=== PATIENT | female | born 1980 | race African-American/Black ===

== ENCOUNTER → 2016-10-03 | Outpatient (CLI) | payer OTHER ==
[2016-06-07 17:02] VITALS: BP 113/70
[~2016-10-03] MED LIST: HYDR25CA PO; PRED50TA PO; TRIA15OI TP
--- NOTE | 2016-10-03 10:10 | RAD ---
DATE: 10/03/2016 EXAM: DIGITAL DIAGNOSTIC BILATERAL, BREAST LEFT HISTORY: Possible mass left breast (the requisition references a possible mass at the 2:00 position of the breast but the patient reports that she was told that the mass was at the 7:00 position of the left breast). COMPARISON: None This study was interpreted with the benefit of Computerized Aided Detection (CAD). FINDINGS: The breast parenchyma Is heterogeneiously dense, which could reduce sensitivity of mammography. Breast parenchyma level C no mass or definite abnormality is seen on mammography involving either breast. The 2 and 7:00 positions of the left breast were scanned. No abnormality is seen at either of these locations. IMPRESSION: Benign findings. If there is a discrete, palpable, mass in either breast biopsy may be warranted despite unremarkable imaging BI-RADS CATEGORY: 2 BENIGN FINDING(S) RECOMMENDED FOLLOW-UP: 12M 12 MONTH FOLLOW-UP PQRS compliance statement: Patient information was entered into a reminder system with a target due date as clinically warranted for the next mammogram. Mammography is a sensitive method for finding small breast cancers, but it does not detect them all and is not a substitute for careful clinical examination. A negative mammogram does not negate a clinically suspicious finding and should not result in delay in biopsying a clinically suspicious abnormality. "Our facility is accredited by the [employer] Mammography Program."
== END | disposition home or self-care (01) ==
LOC: MAMMO 08:48
PROVIDERS: ATTEND Family Medicine
DX: N63 Unspecified lump in breast (principal)
CPT/HCPCS: 76641; G0204; 77066

== ENCOUNTER 2017-05-07 09:12 | Emergency (ER) | payer OTHER ==
[~2017-05-07] VITALS: Ht 162.6 cm; Wt 72.6 kg
[2017-05-07 09:18] VITALS: BP 127/76
[2017-05-07] MEDS ORDERED: DOXY100C2 PO (09:31)
[2017-05-07] MEDS ORDERED: BENZ100C PO (09:31)
--- NOTE | 2017-05-07 09:31 | PHYS DOC ---
Past Medical History Past Medical History: No Pertinent History Additional Past Medical Histor: eczema Past Surgical History: No Surgical History Alcohol Use: None Drug Use: None Adult General Chief Complaint Chief Complaint: COUGH HPI HPI Patient is a 36 year old female presents to the emergency department with a history of frontal and maxillary sinus pressure, nasal congestion, cough for 2 days. Patient states she had vomited 1 time yesterday. 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 Patient denies fever, states she was up all night from coughing. Denies the cough being productive. Denies abdominal pain, diarrhea. She states she is on the depo injections, denies . Review of Systems Review of Systems Constitutional: Denies fever or chills [] Eyes: Denies change in visual acuity, redness, or eye pain [] HENT: nasal congestion denies sore throat [] Respiratory: cough denies shortness of breath [] Cardiovascular: No additional information not addressed in HPI [] GI: Denies abdominal pain, nausea, vomiting, bloody stools or diarrhea [] : Denies dysuria or hematuria [] Musculoskeletal: Denies back pain or joint pain [] Integument: Denies rash or skin lesions [] Neurologic: Denies headache, focal weakness or sensory changes [] Endocrine: Denies polyuria or polydipsia [] Allergies Allergies Allergies Coded Allergies Type Severity Reaction Last Updated Verified Penicillins Allergy Mild 08/18/15 Yes Physical Exam Physical Exam Constitutional: Well developed, well nourished, no acute distress, non-toxic appearance. [] HENT: Normocephalic, atraumatic, bilateral external ears normal, oropharynx moist, no oral exudates, nose normal. Bilateral TM normal, throat with erythema noted, no exudate. Patient with frontal and maxillary sinus tenderness bilaterally. Eyes: PERRLA, EOMI, conjunctiva normal, no discharge. [] Neck: Normal range of motion, no tenderness, supple, no stridor. [] Cardiovascular:Heart rate regular rhythm, no murmur [] Lungs & Thorax: Bilateral breath sounds clear to auscultation [] Skin: Warm, dry, no erythema, no rash. [] Back: No tenderness Extremities: No tenderness, no cyanosis, no clubbing, ROM intact, no edema. [] Neurologic: Alert and oriented X 3, normal motor function, normal sensory function, no focal deficits noted. [] Psychologic: Affect normal, judgement normal, mood normal. [] EKG EKG [] Radiology/Procedures Radiology/Procedures [] Course & Med Decision Making Course & Med Decision Making Pertinent Labs and Imaging studies reviewed. (See chart for details) Since this has been going on 2 days this may still be a viral infection. However patient does work in a jail and has sick contact. Patient has not has the influenza vaccine as of yet. Patient will be encouraged to drink plenty of fluids. Tylenol or Ibuprofen for fever, chills or generalized body aches and discomfort. She will be provided with tessalon perles, doxycycline for sinusitis. She will be recommended to followup with primary care provider in 5-7 days. Signs and symptoms to return to the emergency department has been provided. All questions and concerns have been answered at patients beside. Patinet will be provided with a work note for 2 days. [] Dragon Disclaimer Dragon Disclaimer This electronic medical record was generated, in whole or in part, using a voice recognition dictation system. Departure Departure Impression: Primary Impression: Sinusitis Disposition: 01 HOME, SELF-CARE Condition: STABLE Referrals: AWAIS IBARRA MD (PCP) Patient Instructions: Sinusitis, [id number] Additional Instructions: Activity as tolerated Medication as prescribed Sudafed and mucinex DM as directed by manufacture over the counter Tylenol or Ibuprofen for fever, chills or generalized by aches Drink plenty of fluids such as water, gatorade or propel Followup with primary care provider in 5-7 days Return to emergency department as needed for signs and symptoms that become worse. Scripts Benzonatate (TESSALON PERLE) 100 Mg Capsule 1 CAP PO TID, #30 CAP Prov: ALAN STILL APRN 05/07/17 Doxycycline Hyclate (DOXYCYCLINE HYCLATE) 100 Mg Capsule 1 CAP PO BID, #20 CAP Prov: ALAN STILL APRN 05/07/17 Problem Qualifiers Primary Impression: Sinusitis Sinusitis location: unspecified location Chronicity: unspecified Qualified Codes: J32.9 - Chronic sinusitis, unspecified ALAN STILL APRN May 07, 2017 09:31
== END 2017-05-07 09:37 | disposition home or self-care (01) ==
LOC: ER 09:12
DX: J32.1 Chronic frontal sinusitis (principal); J32.0 Chronic maxillary sinusitis; Z88.0 Allergy status to penicillin
CPT/HCPCS: 99283

== ENCOUNTER 2019-05-10 16:41 | Emergency (ER) | payer BC, OTHER ==
[~2019-05-10] VITALS: Ht 162.6 cm; Wt 77.1 kg
[~2019-05-10 16:41] MED LIST changes: +BENZ100C PO; +DOXY100C2 PO
[2019-05-10 17:09] VITALS: BP 132/84
--- NOTE | 2019-05-10 17:27 | PHYS DOC ---
Past Medical History Past Medical History: No Pertinent History Additional Past Medical Histor: eczema Past Surgical History: No Surgical History Additional Past Surgical Histo: Bladder Stent Alcohol Use: None Drug Use: None Adult General Chief Complaint Chief Complaint: EARACHE/EAR PAIN HPI HPI Patient is a 38 year old [f__sex] who presents with [] Review of Systems Review of Systems HENT: Denies nasal congestion or sore throat. Left ear pain. [] Integument:Eczema. Denies rash or skin lesions [] All other systems were reviewed and found to be within normal limits, except as documented in this note. Allergies Allergies Allergies Coded Allergies Type Severity Reaction Last Updated Verified Penicillins Allergy Mild 08/18/15 Yes Physical Exam Physical Exam Constitutional: Well developed, well nourished, no acute distress, non-toxic appearance. [] HENT: Normocephalic, atraumatic, bilateral external ears normal, oropharynx moist, no oral exudates, nose normal. Left otitis externa.[] Eyes: PERRLA, EOMI, conjunctiva normal, no discharge. [] Neck: Normal range of motion, no tenderness, supple, no stridor. [] Cardiovascular:Heart rate regular rhythm, no murmur [] Lungs & Thorax: Bilateral breath sounds clear to auscultation [] Abdomen: Bowel sounds normal, soft, no tenderness, no masses, no pulsatile masses. [] Skin: Eczema to flexures, outer ear. Warm, dry, no erythema, no rash. [] Back: No tenderness, no CVA tenderness. [] Extremities: No tenderness, no cyanosis, no clubbing, ROM intact, no edema. [] Neurologic: Alert and oriented X 3, normal motor function, normal sensory function, no focal deficits noted. [] Psychologic: Affect normal, judgement normal, mood normal. [] Current Patient Data Vital Signs Vital Signs Date Time Temp Pulse Resp B/P (MAP) Pulse Ox O2 Delivery O2 Flow Rate FiO2 05/10/19 17:09 97.8 74 18 132/84 (100) 98 Room Air 97.8 EKG EKG [] Radiology/Procedures Radiology/Procedures [] Course & Med Decision Making Course & Med Decision Making Left otitis externa. Patient has eczema to the ear lobe. Patient states she has not been able to get into her primary care doctor to get her time in slowing cream for her eczema. I have written the prescription. Vital signs within normal limits. Patient denies any other symptoms. Patient rates her left ear pain 8 out of 10. Dragon Disclaimer Dragon Disclaimer This electronic medical record was generated, in whole or in part, using a voice recognition dictation system. Departure Departure Impression: Primary Impression: Eczema Additional Impression: Otitis externa Disposition: HOME, SELF-CARE Condition: STABLE Referrals: NO PCP (PCP) Patient Instructions: Eczema Additional Instructions: Follow up with your PCP as soon as possible. Scripts Ciprofloxacin Hcl/Dexameth (CIPRODEX OTIC SUSPENSION) 7.5 Ml Drops.susp 4 DROP LEFT EAR BID for 7 Days, #7.5 ML Prov: ALAN LANCASTER APRN 05/10/19 Triamcinolone Acetonide (TRIAMCINOLONE ACETONIDE 0.1% OINT) 15 Gm Oint...g. 1 LOREE TP BID for WOUND CARE, #1 TUBE MIX WITH EUCERIN DIRECTED BY PHYSICIAN Prov: ALAN LANCASTER APRN 05/10/19 Problem Qualifiers Primary Impression: Eczema Eczema type: flexural Qualified Codes: L20.82 - Flexural eczema Additional Impression: Otitis externa Otitis externa type: other infective Chronicity: acute Laterality: left Qualified Codes: H60.392 - Other infective otitis externa, left ear ALAN LANCASTER APRN May 10, 2019 17:27
[2019-05-10] MEDS ORDERED: TRIA15OI TP (17:28)
[2019-05-10] MEDS ORDERED: CIPR7.5D LEFT EAR (17:29)
== END 2019-05-10 17:50 | disposition home or self-care (01) ==
LOC: ER 16:41
DX: L20.82 Flexural eczema (principal); H60.392 Other infective otitis externa, left ear; Z88.0 Allergy status to penicillin
CPT/HCPCS: 99283

== ENCOUNTER 2020-03-18 21:20 | Emergency (ER) | payer SELFPAY ==
[~2020-03-18] VITALS: Ht 162.6 cm; Wt 72.7 kg
[~2020-03-18 21:20] MED LIST changes: +CIPR7.5D LEFT EAR
[2020-03-18 21:53] VITALS: BP 116/77
[2020-03-18] MEDS ORDERED: FAMO40TA57 PO (23:44)
[2020-03-18] MEDS ORDERED: PRED20TA PO (23:44)
--- NOTE | 2020-03-18 23:44 | PHYS DOC ---
Past Medical History Past Medical History: No Pertinent History Additional Past Medical Histor: eczema Past Surgical History: Other Additional Past Surgical Histo: Bladder Stent Smoking Status: Never Smoker Alcohol Use: None Drug Use: None General Adult EDM: Chief Complaint: SKIN RASH/ABSCESS HPI: HPI: Patient is a 39 year old female with a past medical history eczema presents for evaluation of eczema. Patient has an acute breakout bilateral arms. Patient is states she has been using her scribed eczema cream and Benadryl with no relief. Onset of symptoms 3 to 4 days progressively getting worse. Review of Systems: Review of Systems: Constitutional: Denies fever or chills. [] Eyes: Denies change in visual acuity. [] HENT: Denies nasal congestion or sore throat. [] Respiratory: Denies cough or shortness of breath. [] Cardiovascular: Denies chest pain or edema. [] GI: Denies abdominal pain, nausea, vomiting, bloody stools or diarrhea. [] : Denies dysuria. [] Musculoskeletal: Denies back pain or joint pain. [] Integument: Positive rash positive itch Neurologic: Denies headache, focal weakness or sensory changes. [] Endocrine: Denies polyuria or polydipsia. [] Lymphatic: Denies swollen glands. [] Psychiatric: Denies depression or anxiety. [] Heart Score: Risk Factors: Risk Factors: DM, Current or recent (<one month) smoker, HTN, HLP, family history of CAD, obesity. Risk Scores: Score 0 - 3: 2.5% MACE over next 6 weeks - Discharge Home Score 4 - 6: 20.3% MACE over next 6 weeks - Admit for Clinical Observation Score 7 - 10: 72.7% MACE over next 6 weeks - Early Invasive Strategies Current Medications: Current Medications Medications (Trade) Dose Ordered Sig/Reyes Start Time Stop Time Status Last Admin Dose Admin Famotidine (Pepcid) 20 mg 1X ONCE 03/18/20 23:45 03/18/20 23:46 UNV Methylprednisolone Sodium Succinate (SOLU-Medrol 125MG VIAL) 125 mg 1X ONCE 03/18/20 23:45 03/18/20 23:46 UNV Allergies: Allergies: Allergies Coded Allergies Type Severity Reaction Last Updated Verified Penicillins Allergy Mild 08/18/15 Yes Physical Exam: PE: Constitutional: Well developed, well nourished, no acute distress, non-toxic appearance. [] HENT: Normocephalic, atraumatic, bilateral external ears normal, oropharynx moist, no oral exudates, nose normal. [] Eyes: PERRLA, EOMI, conjunctiva normal, no discharge. [] Neck: Normal range of motion, no tenderness, supple, no stridor. [] Cardiovascular:Heart rate regular rhythm, no murmur [] Lungs & Thorax: Bilateral breath sounds clear to auscultation [] Abdomen: Bowel sounds normal, soft, no tenderness, no masses, no pulsatile masses. [] Skin: Positive rash bilateral upper extremity raised erythematous Back: No tenderness, no CVA tenderness. [] Extremities: No tenderness, no cyanosis, no clubbing, ROM intact, no edema. [] Neurologic: Alert and oriented X 3, normal motor function, normal sensory function, no focal deficits noted. [] Psychologic: Affect normal, judgement normal, mood normal. [] Current Patient Data: Vital Signs: Vital Signs Date Time Temp Pulse Resp B/P (MAP) Pulse Ox O2 Delivery O2 Flow Rate FiO2 03/18/20 21:53 98.1 91 18 116/77 (90) 99 Room Air 98.1 EKG: EKG: [] Radiology/Procedures: Radiology/Procedures: [] Course & Med Decision Making: Course & Med Decision Making Pertinent Labs and Imaging studies reviewed. (See chart for details) [] Patient states current rash is similar to previous eczema outbreaks. Will place patient on Medrol Dosepak. Patient treated in the ER with Solu-Medrol. Patient advised to take [id number] Benadryl and Pepcid. Patient to continue using her eczema cream. Andrew Disclaimer: Andrew Disclaimer: This electronic medical record was generated, in whole or in part, using a voice recognition dictation system. Departure Departure Impression: Primary Impression: Eczema Disposition: 01 HOME, SELF-CARE Condition: STABLE Referrals: NO PCP (PCP) Patient Instructions: Eczema, Rash Scripts Famotidine (PEPCID) 40 Mg Tablet 40 MG PO HS for 10 Days, #10 TAB Prov: CHARLY ROBISON I DO 03/18/20 Prednisone (PREDNISONE) 20 Mg Tablet 1 TAB PO UD for 12 Days, #15 TAB Take 2 tabs days 1,2,3 1.5 tabs days 3,4,5 1 tab days 6,7,8 0.5 tab days 9,10,11 Prov: CHARLY ROBISON I DO 03/18/20 Justicifation of Admission Dx: Justifications for Admission: Justification of Admission Dx: N/A CHARLY ROBISON I DO Mar 18, 2020 23:44
[2020-03-18] MEDS ORDERED: methylPREDNISolone SOD SUCC PF 125 MG/2 ML VIAL. IM ONE (23:45)
[2020-03-18] MEDS ORDERED: FAMOTIDINE 20 MG TABLET. PO ONE (23:45)
== END 2020-03-18 23:58 | disposition home or self-care (01) ==
LOC: ER 21:20
DX: L30.9 Dermatitis, unspecified (principal); R21 Rash and other nonspecific skin eruption; Z98.890 Other specified postprocedural states; Z88.0 Allergy status to penicillin
CPT/HCPCS: 96372; 99283; J2930

== ENCOUNTER 2020-11-15 19:48 | Emergency (ER) | payer SELFPAY ==
[~2020-11-15] VITALS: Ht 162.6 cm; Wt 79.5 kg
[~2020-11-15 19:48] MED LIST changes: +FAMO40TA57 PO; +PRED20TA PO
[2020-11-15 19:54] VITALS: BP 114/67
[2020-11-15] MEDS ORDERED: hydrOXYzine IM 50 MG/ML VIAL IM ONE (20:30)
[2020-11-15] MEDS ORDERED: DEXAMETHASONE SOD PHOS 20 MG/5 ML VIAL. IM ONE (20:30)
[2020-11-15] MEDS ORDERED: HYDR25TA PO (20:36)
[2020-11-15] MEDS ORDERED: PRED-220 PO (20:36)
--- NOTE | 2020-11-15 20:37 | PHYS DOC ---
Past Medical History Past Medical History: Other Additional Past Medical Histor: eczema Past Surgical History: Other Additional Past Surgical Histo: Bladder Stent Smoking Status: Never Smoker Alcohol Use: None Drug Use: None General Adult EDM: Chief Complaint: ITCHING HPI: HPI: Patient is a 40 year old female presented to the ED today complaining of itching that began 2 days ago. Patient states she has severe eczema and sometimes it presents like this. She states she used to get phototherapy for eczema but due to COVID-19 she has not been able to go to the flame cutter for this. Review of Systems: Review of Systems: Constitutional: Denies fever or chills. [] Musculoskeletal: Denies back pain or joint pain. [] Integument: Reports pruritic rash Neurologic: Denies headache, focal weakness or sensory changes. [] Psychiatric: Denies depression or anxiety. [] Heart Score: C/O Chest Pain: N/A Risk Factors: Risk Factors: DM, Current or recent (<one month) smoker, HTN, HLP, family history of CAD, obesity. Risk Scores: Score 0 - 3: 2.5% MACE over next 6 weeks - Discharge Home Score 4 - 6: 20.3% MACE over next 6 weeks - Admit for Clinical Observation Score 7 - 10: 72.7% MACE over next 6 weeks - Early Invasive Strategies Allergies: Allergies: Allergies Coded Allergies Type Severity Reaction Last Updated Verified Penicillins Allergy Mild 08/18/15 Yes Physical Exam: PE: Constitutional: Well developed, well nourished, no acute distress, non-toxic appearance. [] Skin: Patient is currently itching, she has multiple lesions of eczema throughout her upper extremities. Back: No tenderness, no CVA tenderness. [] Extremities: No tenderness, no cyanosis, no clubbing, ROM intact, no edema. [] Neurologic: Alert and oriented X 3, normal motor function, normal sensory function, no focal deficits noted. [] Psychologic: Affect normal, judgement normal, mood normal. [] Current Patient Data: Vital Signs: Vital Signs Date Time Temp Pulse Resp B/P (MAP) Pulse Ox O2 Delivery O2 Flow Rate FiO2 11/15/20 19:54 98.2 89 16 114/67 (83) 100 Room Air 98.2 EKG: EKG: [] Radiology/Procedures: Radiology/Procedures: [] Course & Med Decision Making: Course & Med Decision Making Pertinent Labs and Imaging studies reviewed. (See chart for details) This is a 40-year-old female patient presenting to the ED today with severe itching that began 2 days ago. She has history of eczema and does phototherapy but has not had a chance to do this therapy for 1 year due to COVID-19. She currently has triamcinolone cream and Benadryl which is not helping. She was given Decadron injection in the ED and hydroxyzine. She will be discharged with hydroxyzine and tapered dose of prednisone to use until seen by the flame cutter Andrew Disclaimer: Andrew Disclaimer: This electronic medical record was generated, in whole or in part, using a voice recognition dictation system. Departure Departure Impression: Primary Impression: Eczema Qualified Codes: L30.8 - Other specified dermatitis Additional Impression: Pruritic dermatitis Disposition: HOME / SELF CARE / HOMELESS Condition: STABLE Referrals: NO PCP (PCP) Follow-up with your flame cutter as soon as possible Patient Instructions: Eczema, Itching-Brief Additional Instructions: You were evaluated in the emergency room. Try and get an appointment with your flame cutter as soon as possible. Use the prescribed medications as ordered Scripts Prednisone (PREDNISONE ) 10 Mg Tablet 10 MG PO UD for PREDNISONE TAPER, #39 TAB 0 Refills Take 3 tablets by mouth twice a day for 3 days, then take 2 tablets by mouth twice a day for 3 days, then take 1 tablet by mouth twice a day for 3 days, then take 1 tablet by mouth daily x 3 days, then stop. Prov: JUAN RAYO APRN 11/15/20 Hydroxyzine Hcl (HYDROXYZINE HCL) 25 Mg Tablet 1 TAB PO TID, #90 TAB 2 Refills Prov: JUAN RAYO APRN 11/15/20 JUAN RAYO APRN November 15, 2020 20:37
== END 2020-11-15 20:55 | disposition home or self-care (01) ==
LOC: ER 20:25
DX: L30.8 Other specified dermatitis (principal); Z96.0 Presence of urogenital implants; Z88.0 Allergy status to penicillin
CPT/HCPCS: 96372; 99284; J1100; J3410

== ENCOUNTER 2020-12-21 15:48 | Emergency (ER) | payer SELFPAY ==
[~2020-12-21] VITALS: Ht 162.6 cm; Wt 77.2 kg
[~2020-12-21 15:48] MED LIST changes: +HYDR25TA PO; +PRED-220 PO
[2020-12-21 17:17] VITALS: BP 131/77
--- NOTE | 2020-12-21 17:48 | PHYS DOC ---
Past Medical History Past Medical History: Other Additional Past Medical Histor: eczema Past Surgical History: Other Additional Past Surgical Histo: Bladder Stent Smoking Status: Never Smoker Alcohol Use: None Drug Use: None General Adult EDM: Chief Complaint: SKIN RASH/ABSCESS HPI: HPI: Patient is a 40 year old female who presents with eczema bilateral arms and hands have flared up the last week. She states she is out of the hydroxyzine and try menthol cream. She states it helps her best. Has medical history of eczema. Review of Systems: Review of Systems: Constitutional: Denies fever or chills. [] Eyes: Denies change in visual acuity. [] HENT: Denies nasal congestion or sore throat. [] Respiratory: Denies cough or shortness of breath. [] Cardiovascular: Denies chest pain or edema. [] GI: Denies abdominal pain, nausea, vomiting, bloody stools or diarrhea. [] : Denies dysuria. [] Musculoskeletal: Denies back pain or joint pain. [] Integument: Denies rash. +eczema [] Neurologic: Denies headache, focal weakness or sensory changes. [] Endocrine: Denies polyuria or polydipsia. [] Lymphatic: Denies swollen glands. [] Psychiatric: Denies depression or anxiety. [] Heart Score: C/O Chest Pain: No Risk Factors: Risk Factors: DM, Current or recent (<one month) smoker, HTN, HLP, family history of CAD, obesity. Risk Scores: Score 0 - 3: 2.5% MACE over next 6 weeks - Discharge Home Score 4 - 6: 20.3% MACE over next 6 weeks - Admit for Clinical Observation Score 7 - 10: 72.7% MACE over next 6 weeks - Early Invasive Strategies Allergies: Allergies: Allergies Coded Allergies Type Severity Reaction Last Updated Verified Penicillins Allergy Mild 08/18/15 Yes Physical Exam: PE: Constitutional: Well developed, well nourished, no acute distress, non-toxic appearance. [] HENT: Normocephalic, atraumatic, bilateral external ears normal, oropharynx moist, no oral exudates, nose normal. [] Eyes: PERRLA, EOMI, conjunctiva normal, no discharge. [] Neck: Normal range of motion, no tenderness, supple, no stridor. [] Cardiovascular:Heart rate regular rhythm, no murmur [] Lungs & Thorax: Bilateral breath sounds clear to auscultation [] Abdomen: Bowel sounds normal, soft, no tenderness, no masses, no pulsatile masses. [] Skin: Warm, dry, no erythema, no rash. Bilateral arm eczema[] Back: No tenderness, no CVA tenderness. [] Extremities: No tenderness, no cyanosis, no clubbing, ROM intact, no edema. [] Neurologic: Alert and oriented X 3, normal motor function, normal sensory function, no focal deficits noted. [] Psychologic: Affect normal, judgement normal, mood normal. [] Current Patient Data: Vital Signs: Vital Signs Date Time Temp Pulse Resp B/P (MAP) Pulse Ox O2 Delivery O2 Flow Rate FiO2 12/21/20 17:17 98.0 80 16 131/77 (95) 100 Room Air 98.0 EKG: EKG: [] Radiology/Procedures: Radiology/Procedures: [] Course & Med Decision Making: Course & Med Decision Making Pertinent Labs and Imaging studies reviewed. (See chart for details) See HPI. Bilateral arm and hand eczema. She states she is very itchy. No signs of infection. No signs of cellulitis. Afebrile. Skin pink warm and dry. Radial pulses strong and present. Cap refill less than 2 seconds. Vital signs within normal limits. She states this is her normal flareup. [] Andrew Disclaimer: Andrew Disclaimer: This electronic medical record was generated, in whole or in part, using a voice recognition dictation system. Departure Departure Impression: Primary Impression: Eczema Qualified Codes: L30.9 - Dermatitis, unspecified Disposition: HOME / SELF CARE / HOMELESS Condition: STABLE Referrals: NO PCP (PCP) Patient Instructions: Eczema Additional Instructions: Follow-up with your bit gatherer or primary care physician. Use medications as prescribed. Scripts Methylprednisolone (MEDROL) 4 Mg Tab.ds.pk 1 PKG PO UD, #1 PKG Prov: ALAN LANCASTER ZIGZAG MACHINE OPERATOR 12/21/20 Hydroxyzine Hcl (HYDROXYZINE HCL) 25 Mg Tablet 1 TAB PO TID, #30 TAB Prov: ALAN LANCASTER ZIGZAG MACHINE OPERATOR 12/21/20 Triamcinolone Acetonide (TRIAMCINOLONE ACETONIDE 0.5% CREAM) 15 Gm Cream..g. 1 LOREE TP BID, #30 GM Prov: ALAN LANCASTER APRN 12/21/20 ALAN LANCASTER APRN Dec 21, 2020 17:48
[2020-12-21] MEDS ORDERED: HYDR25TA PO (18:05)
[2020-12-21] MEDS ORDERED: TRIA15CR TP (18:05)
[2020-12-21] MEDS ORDERED: METH4TAB2 PO (18:36)
[2020-12-21] MEDS ORDERED: methylPREDNISolone SOD SUCC PF 125 MG/2 ML VIAL. IM ONE (18:45)
== END 2020-12-21 19:04 | disposition home or self-care (01) ==
LOC: ER 15:48
DX: L30.9 Dermatitis, unspecified (principal); Z88.0 Allergy status to penicillin
CPT/HCPCS: 96372; 99283; J2930

== ENCOUNTER 2021-02-05 11:27 | Emergency (ER) | payer SELFPAY ==
[~2021-02-05 11:27] MED LIST changes: +METH4TAB2 PO; +TRIA15CR TP
== END 2021-02-05 15:29 | disposition left against medical advice (07) ==
LOC: ER 11:27
DX: L98.8 Other specified disorders of the skin and subcutaneous tissue (principal); Z53.21 Procedure and treatment not carried out due to patient leaving prior to being seen by health care provider

== ENCOUNTER 2021-10-29 22:33 | Emergency (ER) | payer SELFPAY ==
[~2021-10-29] VITALS: Ht 160 cm; Wt 77.2 kg
[~2021-10-29 22:33] MED LIST changes: -DOXY100C2 PO; +DOXY100C3 PO
--- NOTE | 2021-10-29 23:09 | PHYS DOC ---
Past Medical History Past Medical History: Other Additional Past Medical Histor: eczema Past Surgical History: Other Additional Past Surgical Histo: Bladder Stent Smoking Status: Never Smoker Alcohol Use: None Drug Use: None General Adult EDM: Chief Complaint: NAUSEA/VOMITING/DIARRHEA HPI: HPI: Patient is a 41 year old male history of eczema presenting to the ED today complaining of nausea, vomiting, symptoms began 4 days ago and have been going on intermittently since then. Patient denies any abdominal pain. Denies any hematemesis or melena. Reports some mild left flank/mid back pain that began today. Denies any chest pain or shortness of breath. Reports the pain to her back is worse when sitting down and better when standing. Currently she is standing up for comfort Review of Systems: Review of Systems: Constitutional: Denies fever or chills. [] Eyes: Denies change in visual acuity. [] HENT: Denies nasal congestion or sore throat. [] Respiratory: Denies cough or shortness of breath. [] Cardiovascular: Denies chest pain or edema. [] GI: Reports nausea, vomiting. Denies abdominal pain, bloody stools or diarrhea. [] : Denies dysuria. [] Musculoskeletal: Reports flank pain. Denies back pain or joint pain. [] Integument: Denies rash. [] Neurologic: Denies headache, focal weakness or sensory changes. [] Endocrine: Denies polyuria or polydipsia. [] Lymphatic: Denies swollen glands. [] Psychiatric: Denies depression or anxiety. [] Heart Score: C/O Chest Pain: N/A Risk Factors: Risk Factors: DM, Current or recent (<one month) smoker, HTN, HLP, family history of CAD, obesity. Risk Scores: Score 0 - 3: 2.5% MACE over next 6 weeks - Discharge Home Score 4 - 6: 20.3% MACE over next 6 weeks - Admit for Clinical Observation Score 7 - 10: 72.7% MACE over next 6 weeks - Early Invasive Strategies Allergies: Allergies: Allergies Coded Allergies Type Severity Reaction Last Updated Verified Penicillins Allergy Mild 08/18/15 Yes Physical Exam: PE: Constitutional: Well developed, well nourished, no acute distress, non-toxic appearance. [] HENT: Normocephalic, atraumatic, bilateral external ears normal, oropharynx mois t, no oral exudates, nose normal. [] Eyes: PERRLA, EOMI, conjunctiva normal, no discharge. [] Neck: Normal range of motion, no tenderness, supple, no stridor. [] Cardiovascular:Heart rate regular rhythm, no murmur [] Lungs & Thorax: Bilateral breath sounds clear to auscultation [] Abdomen: Bowel sounds normal, soft, no tenderness, no masses, no pulsatile masses. [] Skin: Warm, dry, no erythema, no rash. [] Back: No tenderness, mild left CVA tenderness. [] Extremities: No tenderness, no cyanosis, no clubbing, ROM intact, no edema. [] Neurologic: Alert and oriented X 3, normal motor function, normal sensory function, no focal deficits noted. [] Psychologic: Affect normal, judgement normal, mood normal. [] EKG: EKG: [] Radiology/Procedures: Radiology/Procedures: []PROCEDURE: CT ABDOMEN PELVIS WO CONTRAST CT abdomen and pelvis without contrast PQRS statement: CT scans at this facility use dose reduction including either automated exposure control, iterative reconstructions, and /or weight based radiation dosing via mA and kV modification when appropriate to reduce radiation dose to as low as reasonably achievable. HISTORY: Nausea, vomiting, flank pain. Abdomen findings: Liver, spleen, gallbladder, pancreas, adrenal glands and right kidney unremarkable. There may be a 2 mm faint in density urinary calculus in the left renal pelvis on image 67. No urinary calculus, hydronephrosis or perinephric edema. Appendix is normal. No obstruction or inflammation GI tract. No abdominal fluid. Pelvis findings: Left ovarian 2.7 cm hypodensity. Right ovary, uterus, bladder, rectum and bones are unremarkable. Vaginal tampon. No pelvic fluid. IMPRESSION: 1. No acute process. The appendix is negative. No obstructive uropathy. 2. 2 mm left renal pelvic calculus. 3. 2.7 cm hypodensity in the left ovary most likely a dominant follicle, versus an ovarian cyst. Further assessment with outpatient pelvic sonography is advised. Electronically signed by: Nazario Kaba MD (10/30/2021 12:24 AM) [facility] [place] DICTATED and SIGNED BY: NAZARIO KABA MD DATE: 10/30/2119 Course & Med Decision Making: Course & Med Decision Making Pertinent Labs and Imaging studies reviewed. (See chart for details) This a 41-year-old female patient presented to the ED today complaining of nausea, vomiting, symptoms for 4 days. Also complaining of left flank pain/mid back pain that began today. Negative urine hCG, UA negative for blood, negative for infection. CBC with a WBC of 12.7, hemoglobin 11.3 with hematocrit of 34.7-reports history of chronic anemia, CMP with no acute findings. CT of the abdomen and pelvis no acute process noted. The appendix is negative. No obstructive uropathy. 2. 2 mm left renal pelvic calculus. 2.7 cm hypodensity in the left ovary most likely a dominant follicle, versus an ovarian cyst. Further assessment with outpatient pelvic sonography is advised. Discharge to home. Follow-up with [facility] for the ovarian cyst, follow-up with urology for the kidney stone/PCP. Provided return precautions. Discharged on Flomax, naproxen and hydrocodone for severe pain Dragon Disclaimer: Dragon Disclaimer: This electronic medical record was generated, in whole or in part, using a voice recognition dictation system. Departure Departure Impression: Primary Impression: Renal calculi Additional Impression: Left ovarian cyst Disposition: HOME / SELF CARE / HOMELESS Condition: STABLE Referrals: NO PCP (PCP) FIDE CORTEZ DO follow up in one week AMARILYS MELO MD follow up in one week Patient Instructions: Kidney Stones, Ovarian Cyst Additional Instructions: You were evaluated in the emergency room and noted to have a kidney stone, please follow-up with your primary care doctor or the provided urologist in the course of this week. You were also noted to have left ovarian cyst, please follow-up with your [facility] for outpatient ultrasound on this. Come back to the ED at any point symptoms worsen Scripts Tamsulosin Hcl (FLOMAX) 0.4 Mg Cap.er.24h 1 CAP PO DAILY, #7 CAP 0 Refills Prov: JUAN RAYO [employer] 10/30/21 Naproxen (NAPROXEN) 500 Mg Tablet 1 TAB PO BID for pain, #14 TAB 0 Refills Prov: JUAN RAYO [employer] 10/30/21 Hydrocodone Bit/Acetaminophen (HYDROCODONE-APAP 5-325 ) 1 Tab Tablet 1 TAB PO PRN Q6HRS PRN for PAIN, #14 TAB 0 Refills Prov: MUTUNGKira,JUAN M [employer]IC 10/30/21 JUAN RAYO APRN Oct 29, 2021 23:09
[2021-10-29] MEDS ORDERED: IV NORMAL SALINE 1000ML BAG 1,000 ML IV ONE (23:15)
[2021-10-29] MEDS ORDERED: MORPHINE SULFATE 4 MG/ML INJ. IVP ONE (23:15)
[2021-10-29] MEDS ORDERED: FAMOTIDINE 20 MG/2 ML VIAL IVP ONE (23:15)
[2021-10-29] MEDS ORDERED: ONDANSETRON PF 4 MG/2 ML VIAL. IVP ONE (23:15)
[2021-10-29 23:31] LABS: BASO # 0.1 x10^3/uL (0.0-0.2); BASO % 1 % (0-3); EOS # 0.1 x10^3/uL (0.0-0.7); EOS % 1 % (0-3); HEMATOCRIT 34.7 % (36.0-47.0); HEMOGLOBIN 11.2 g/dL (12.0-15.5); LYMPH # 2.6 x10^3/uL (1.0-4.8); LYMPH % 21 % (24-48); MEAN CORPUSCULAR HEMOGLOBIN 24 pg (25-35); MEAN CORPUSCULAR HGB CONC 32 g/dL (31-37); MEAN CORPUSCULAR VOLUME 75 fL (79-100); MONO # 0.8 x10^3/uL (0.0-1.1); MONO % 6 % (0-9); NEUT # 9.1 x10^3/uL (1.8-7.7); NEUT % 72 % (31-73); PLATELET COUNT 302 x10^3/uL (140-400); RED BLOOD COUNT 4.65 x10^6/uL (3.50-5.40); RED CELL DISTRIBUTION WIDTH 14.6 % (11.5-14.5); WHITE BLOOD COUNT 12.7 x10^3/uL (4.0-11.0)
[2021-10-29 23:46] LABS: CALCIUM 8.9 mg/dL (8.5-10.1); CREATININE 0.8 mg/dL (0.6-1.0); GFR 96.1; POTASSIUM 3.9 mmol/L (3.5-5.1)
[2021-10-29 23:51] LABS: ALBUMIN 3.7 g/dL (3.4-5.0); ALBUMIN/GLOBULIN RATIO 0.9 (1.0-1.7); TOTAL BILIRUBIN 0.6 mg/dL (0.2-1.0); TOTAL PROTEIN 7.8 g/dL (6.4-8.2)
--- NOTE | 2021-10-30 00:27 | RAD ---
CT abdomen and pelvis without contrast PQRS statement: CT scans at this facility use dose reduction including either automated exposure cont rol, iterative reconstructions, and /or weight based radiation dosing via mA and kV modification when appropriate to reduce radiation dose to as low as reasonably achievable. HISTORY: Nausea, vomiting, flank pain. Abdomen findings: Liver, spleen, gallbladder, pancreas, adrenal glands and right kidney unremarkable. There may be a 2 mm faint in density urinary calculus in the left renal pelvis on image 67. No urina ry calculus, hydronephrosis or perinephric edema. Appendix is normal. No obstruction or inflammation GI tract. No abdominal fluid. Pelvis findings: Left ovarian 2.7 cm hypodensity. Right ovary, uterus, bladder, rectum and bones are unremarkable. Vaginal tampon. No pelvic fluid. IMPRESSION: 1. No acute process. The appendix is negative. No obstructive uropathy. 2. 2 mm left renal pelvic calculus. 3. 2.7 cm hypodensity in the left ovary most likely a dominant follicle, versus an ovarian cyst. Furt her assessment with outpatient pelvic sonography is advised. Electronically signed by: Matthieu Kaba MD (10/30/2021 12:24 AM) [facility]
[2021-10-30] MEDS ORDERED: TAMSULOSIN 0.4 MG CAP.ER.24H. PO ONE (00:30)
[2021-10-30 00:59] LABS: AMPHETAMINE/METHAMPHETAMINE NEG (NEG); BARBITURATES NEG (NEG); BENZODIAZEPINES NEG (NEG); CANNABINOIDS POS (NEG); COCAINE NEG (NEG); METHADONE NEG (NEG); OPIATES POS (NEG); PHENCYCLIDINE NEG (NEG)
[2021-10-30 01:02] LABS: BACTERIA,URINE FEW /HPF (0-FEW); RBC,URINE RARE /HPF (0-2)
[2021-10-30] MEDS ORDERED: HYDR-2761 PO (01:59)
[2021-10-30] MEDS ORDERED: TAMS0.4C97 PO (01:59)
[2021-10-30] MEDS ORDERED: NAPR-514 PO (01:59)
[2021-10-30 02:23] VITALS: BP 117/76
== END 2021-10-30 03:51 | disposition home or self-care (01) ==
LOC: ER 22:33
DX: N20.0 Calculus of kidney (principal); N83.202 Unspecified ovarian cyst, left side; Z88.0 Allergy status to penicillin
CPT/HCPCS: 36415; 74176; 80053; 80307; 81001; 81025; 83690; 85025; 96361; 96374; 96375; 99285; J2270; J2405; J3490; J7030